=== PATIENT | male | born 1990 | race Caucasian/White ===

== ENCOUNTER 2016-10-31 18:42 | Emergency (ER) | payer SELFPAY ==
[2016-10-31 18:51] VITALS: BP 133/80; RESP 18
--- NOTE | 2016-10-31 19:01 | EDPHY ---
H & P Stated Complaint: Cut L leg with machete Time Seen by Provider: 10/31/16 18:46 HPI/ROS: CHIEF COMPLAINT: Laceration HISTORY OF PRESENT ILLNESS: Patient is a 26-year-old man who comes to the emergency department complaining of a laceration to his left valencia. He states that he was swinging machete trying to cut back branch is and he accidentally hit himself in the valencia. He placed a pressure bandage and came to the emergency department. This happened about 30 minutes ago. He has normal sensation. He is able to ambulate. Normal pulses. REVIEW OF SYSTEMS: Constitutional: denies: chills, fever, recent illness, recent injury EENTM: denies: blurred vision, double vision, nose congestion Respiratory: denies: cough, shortness of breath Cardiac: denies: chest pain, irregular heart rate, lightheadedness, palpitations Gastrointestinal/Abdominal: denies: abdominal pain, diarrhea, nausea, vomiting, blood streaked stools Genitourinary: denies: dysuria, frequency, hematuria, pain Musculoskeletal: See HPI Skin: denies: lesions, rash, jaundice, bruising Neurological: denies: headache, numbness, paresthesia, tingling, dizziness, weakness Hematologic/Lymphatic: denies: blood clots, easy bleeding, easy bruising Immunologic/allergic: denies: HIV/AIDS, transplant EXAM: GENERAL: Well-appearing, well-nourished and in no acute distress. HEAD: Atraumatic, normocephalic. EYES: Pupils equal round and reactive to light, extraocular movements intact, sclera anicteric, conjunctiva are normal. ENT: TMs normal, nares patent, oropharynx clear without exudates. Moist mucous membranes. NECK: Normal range of motion, supple without lymphadenopathy or JVD. LUNGS: Breath sounds clear to auscultation bilaterally and equal. No wheezes rales or rhonchi. HEART: Regular rate and rhythm without murmurs, rubs or gallops. ABDOMEN: Soft, nontender, normoactive bowel sounds. No guarding, no rebound. No masses appreciated. BACK: No CVA tenderness, no spinal tenderness, step-offs or deformities EXTREMITIES: Normal range of motion, no pitting or edema. No clubbing or cyanosis. NEUROLOGICAL: Cranial nerves II through XII grossly intact. Normal speech, normal gait. 5/5 strength, normal movement in all extremities, normal sensation PSYCH: Normal mood, normal affect. SKIN: Laceration to mid anterior valencia, 3 cm, deep, to the bone. No obvious fracture. No obvious bony deformity. Source: Patient Exam Limitations: No limitations - Personal History Current Tetanus/Diphtheria Vaccine: Yes - Medical/Surgical History Hx Asthma: No Hx Chronic Respiratory Disease: No Hx Diabetes: No Hx Cardiac Disease: No Hx Renal Disease: No Hx Cirrhosis: No Hx Alcoholism: No Other PMH: spondylosis - Family History Significant Family History: No pertinent family hx - Social History Smoking Status: Never smoked Alcohol Use: Sober Drug Use: None Constitutional: Initial Vital Signs Temperature (C) 36.5 C 10/31/16 18:45 Heart Rate 71 10/31/16 18:45 Respiratory Rate 18 10/31/16 18:45 Blood Pressure 133/80 H 10/31/16 18:45 O2 Sat (%) 95 10/31/16 18:45 O2 Delivery Mode Room Air Allergies/Adverse Reactions: Sulfa (Sulfonamide Antibiotics) Allergy (Unknown, Verified 10/31/16 18:49) as child Home Medications: Medication Instructions Recorded Cephalexin [Keflex] 500 mg PO TID #21 cap 10/31/16 Medical Decision Making - Diagnostics Imaging Results: Imaging Impressions Tibia/Fibula X-Ray 10/31/16 18:58 Impression: No fracture or foreign body. Procedures: Procedure: Laceration repair. Verbal consent was obtained from the patient. The 3 cm left valencia laceration was anesthetized with 0.5% bupivacaine with epinephrine locally infiltrated. The wound was irrigated copiously according to protocol, draped and explored to its base. It was approximately 1 cm deep. There were no deep structures involved. No tendon, nerve, or vascular injury was identified when explored through full range of motion. No foreign body was identified. The wound was repaired with 5.0 Vicryl, 7 sutures, interrupted. The wound repair was simple without wound margin revisement or multiple flap alignment. The procedure was performed by myself. A dressing was then placed with sterile gauze and bacitracin. ED Course/Re-evaluation: The patient does not have any obvious fracture or bone chip. I will start him on antibiotics because I am worried about some communication with the bone. Patient understands and agrees with this plan. I placed dissolve the sutures with they will need to be resumed in 10 days. Differential Diagnosis: Partial list of the Differential diagnosis considered include but were not limited to; laceration, fracture and although unlikely based on the history and physical exam, I also considered foreign body, tendon injury, nerve injury, vascular injury. I discussed these differential diagnoses and the plan with the patient as well as the usual and expected course. The patient understands that the diagnosis is provisional and that in medicine we are not always correct and that further workup is often warranted. Usual and customary warnings were given. All of the patient's questions were answered. The patient was instructed to return to the emergency department should the symptoms at all worsen or return, otherwise to followup with the physician as we discussed. Departure - Departure Disposition: Home, Routine, Self-Care Clinical Impression: Laceration Condition: Fair Instructions: Care For Your Stitches (ED), Laceration (ED) Additional Instructions: Have your stitches removed in 10 days. Referrals: Morgan Wolf MD [Medical Doctor] - As per Instructions Prescriptions: Cephalexin [Keflex] 500 mg PO TID #21 cap
[2016-10-31 19:57] VITALS: PULSE 88; TEMP 98.8; O2SAT 99
== END 2016-10-31 19:55 | disposition home or self-care (01) ==
PROC: 0HQLXZZ Repair Left Lower Leg Skin, External Approach (ICD-10-PCS; principal; 2016-10-31)
DX: S81.812A Laceration without foreign body, left lower leg, initial encounter (principal); W22.8XXA Striking against or struck by other objects, initial encounter; Y93.89 Activity, other specified

== ENCOUNTER 2016-11-01 09:52 | Emergency (ER) | payer SELFPAY ==
[2016-11-01 09:58] VITALS: BP 122/65; PULSE 72; RESP 17; TEMP 97.7; O2SAT 95
--- NOTE | 2016-11-01 10:21 | EDPHY ---
H & P Time Seen by Provider: 11/01/16 10:10 HPI/ROS: CHIEF COMPLAINT: Wound check HISTORY OF PRESENT ILLNESS: The patient is a 26-year-old male who presents to the emergency department to recheck his left valencia wound. Patient was seen in the emergency department yesterday for a machete wound. He states when he slept he felt the wound pole part. When he removed the bandage she noticed that 1 or 2 of the sutures were missing. The patient denies any other trauma. He has no significant pain. No fevers or chills. He is currently taking his antibiotics. REVIEW OF SYSTEMS: My complete review of systems is negative except as mentioned in the HPI. Past Medical/Surgical History: Noncontributory Smoking Status: Never smoked Physical Exam: Vitals noted General Appearance: Alert and no distress. Head: Pupils equal. Normal. Respiratory: No respiratory distress. Cardiac: regular rate and rhythm. Extremities: Patient has a laceration on his left valencia. This appears clean and dry. There are 2 sutures missing in the middle. However, the wound is maintaining good approximation. No visible foreign body. No surrounding erythema. No streaking up the leg. Skin: No rashes or lesions. Neuro: Alert. Normal mood and affect. Constitutional: Initial Vital Signs Temperature (C) 36.5 C 11/01/16 09:56 Heart Rate 72 11/01/16 09:56 Respiratory Rate 17 11/01/16 09:56 Blood Pressure 122/65 H 11/01/16 09:56 O2 Sat (%) 95 11/01/16 09:56 O2 Delivery Mode Room Air Allergies/Adverse Reactions: Sulfa (Sulfonamide Antibiotics) Allergy (Unknown, Verified 11/01/16 09:55) as child Home Medications: Medication Instructions Recorded Cephalexin [Keflex] 500 mg PO TID #21 cap 10/31/16 Medical Decision Making ED Course/Re-evaluation: In the emergency department I discussed the plan with the patient. I answered all his questions. The patient's wound was cleaned. Steri-Strips were placed. A new dressing was applied. I gave patient wound care instructions. He will return with worsening symptoms. He was given warnings prior to leaving. Differential Diagnosis: My differential includes but is not limited to wound check, foreign body, cellulitis, abscess, wound dehiscence Departure - Departure Disposition: Home, Routine, Self-Care Clinical Impression: Encounter for wound re-check Condition: Good Instructions: Laceration (ED) Additional Instructions: Return with increasing pain, swelling, discharge, fever or any other concerns. Keep the wound clean and dry. Referrals: Ruth Bynum MD [Medical Doctor] - 3-4 days, if not improved
== END 2016-11-01 11:00 | disposition home or self-care (01) ==
DX: Z48.01 Encounter for change or removal of surgical wound dressing (principal)
CPT/HCPCS: G0463

== ENCOUNTER 2017-02-21 18:53 | Emergency (ER) | payer OTHER ==
[2017-02-21 18:59] VITALS: RESP 16
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
[2017-02-21 20:10] VITALS: BP 114/64; PULSE 67; TEMP 98.4; O2SAT 94
== END 2017-02-21 20:09 | disposition home or self-care (01) ==
DX: S97.82XA Crushing injury of left foot, initial encounter (principal); V18.0XXA Pedal cycle driver injured in noncollision transport accident in nontraffic accident, initial encounter; Y92.410 Unspecified street and highway as the place of occurrence of the external cause; Y99.8 Other external cause status; Y93.55 Activity, bike riding
CPT/HCPCS: L4386

== ENCOUNTER 2018-06-09 17:34 | Emergency (ER) | payer MEDICAID, OTHER ==
--- NOTE | 2018-06-09 18:00 | EDPHY ---
H & P Smoking Status: Never smoked Time Seen by Provider: 06/09/18 17:50 HPI/ROS: CLINICAL IMPRESSION: Left forearm laceration, superficial ASSESSMENT/PLAN: Romario Dewitt is a 27-year-old male with a history of chronic back pain who presents for evaluation of left forearm laceration that he sustained approximately 3 hr prior to arrival. Patient is not toxic appearing, he is in no distress. Physical examination reveals 1.5 cm superficial laceration along the volar, ulnar aspect of the mid left forearm. There is no evidence of deep structure involvement, neurovascular compromise, foreign body, or bony involvement. The wound was not contaminated, tetanus status was up-to-date. The wound was irrigated and then repaired as discussed in the procedure note, the patient tolerated this well. Wound care instructions discussed with patient. He is well established with his PCP, he will call to schedule an appointment for wound check and suture removal in 7-10 days. Return precautions discussed- he will return for increased pain, signs of infection, fever, vomiting, if the wound opens or for any other concerns. Patient verbalizes understanding and he is in agreement with plan. Case discussed with and patient seen by Dr. Solomon. DIFFERENTIAL DIAGNOSIS: Includes but not limited to laceration of tendon or vascular structure, underlying fracture, laceration with retained FB ED PROCEDURES: Laceration Repair Verbal consent obtained by patient. Risks discussed, including but not limited to infection, pain, retained foreign body, need for additional repair, poor cosmetic result, tendon damage, nerve damage, poor wound healing, vascular damage. Alternatives to repair discussed. [employer] protocol used to establish correct patient, procedure, equipment, manager product support, and site. Anesthesia obtained by local infiltration. Anesthetized with lidocaine with epinephrine. Laceration location left mid forearm along the volar, ulnar aspect. length 1.5 cm, depth 3 mm, Repair type simple. Patient was prepped and draped in usual sterile fashion. Hemostasis achieved with direct pressure. Wound explored through full range of motion and entire depth of wound probed and visualized with gloved finger. No suspicion for nerve damage, tendon damage, underlying fracture, vascular damage, foreign body, or contamination. Area was cleansed with Shur-Clens and irrigated with sterile saline as per protocol. No foreign body or material removed. Repair method sutures. Three sutures placed, 5.0 Prolene simple interrupted. Well aligned, closely approximated. wound was dressed with antibiotic ointment and a nonstick dressing. Patient tolerated well with no immediate complications. Wound care: Clean and dry x 24 hours, gently clean with soap and water, cover with topical antibiotic ointment/bandage. Suture/Staple removal: 7-10 Days CHIEF COMPLAINT: Laceration HPI: Romario Dewitt is a 27-year-old male with a significant history of chronic back pain who presents for evaluation of a left forearm laceration that he sustained approximately 3 hr prior to arrival. Patient reports he was reaching up onto a shelf when he accidentally cut himself on what he believes is a piece of glass. He cleaned it, applied pressure and wrapped it with gauze and duct tape. He was able to get the bleeding under control, he denies any numbness or tingling of his extremity. He is up-to-date on his tetanus status. He is right -hand dominant. He denies any other injury or concern. PAST MEDICAL HISTORY: Chronic back pain Pertinent Past Surgical History: Noncontributory Social History: Denies smoking, occasional marijuana, occasional alcohol REVIEW OF SYSTEMS: All other systems negative Constitutional: No fever, no chills Musculoskeletal: No deformity, no joint pain Skin: Laceration, denies rash Neurological: No sensory loss or weakness, 2 point discrimination intact. PHYSICAL EXAM: General Appearance: Alert, oriented, appropriate for age, cooperative, NAD, well hydrated, non-toxic appearing, VSS, no hypoxia. Neurological: Alert and oriented x 3 Skin: 1.5 cm superficial laceration along the volar, ulnar aspect of the mid left forearm Musculoskeletal: Patient is able to supinate and pronate without difficulty, left arm. The radial, ulnar and median nerves were all tested. Radial nerve: Patient is able to extend wrist and fingers of the local joints. Ulnar nerve: Patient is able to abduct all fingers. Median nerve patient is able to oppose thumb to pinky. MEDICAL DECISION MAKING: Patient was seen with Dr. Solomon. Diagnosis: Left forearm laceration. New, requires workup Summary: See assessment and plan for summary of ED visit Clinical lab tests: NA. Independent visualization of images, tracing, or specimens: NA. Decision to obtain medical records or history from someone other than the patient no Review / Summarize previous medical records yes Discussed patient with another provider yes, Dr. Solomon (Linda Shepard) Constitutional: Initial Vital Signs Temperature (C) 36.7 C 06/09/18 17:40 Heart Rate 78 06/09/18 17:40 Respiratory Rate 16 06/09/18 17:40 Blood Pressure 103/78 06/09/18 17:40 O2 Sat (%) 97 06/09/18 17:40 O2 Delivery Mode Room Air Allergies/Adverse Reactions: Sulfa (Sulfonamide Antibiotics) Allergy (Unknown, Verified 02/21/17 18:56) as child Home Medications: Medication Instructions Recorded NK [No Known Home Meds] 02/21/17 MDM/Departure - [facility] ED Course/Re-evaluation: This patient was seen and examined by me. He presents with a small left forearm laceration. The bleeding is controlled and he is neurovascularly intact distally. I agree with the assessment and plan. (Giulia Solomon) - Depart Disposition: Home, Routine, Self-Care Clinical Impression: Laceration of forearm Qualifiers: Encounter type: initial encounter Laterality: left Qualified Code(s): S51.812A - Laceration without foreign body of left forearm, initial encounter Condition: Good Instructions: Laceration (ED) Additional Instructions: DISCHARGE INSTRUCTIONS FROM YOUR DOCTOR Thank you for visiting our emergency department today. Please keep in mind that discharge from the emergency department does not mean that there is nothing wrong - it simply means that we have not identified an emergency condition that requires further evaluation or treatment in the hospital. You should always plan to follow up with primary care for re-evaluation of your condition in the next 2-3 days. If you have been referred to a specialist, please call as soon as possible (today or tomorrow) to schedule your follow up appointment at the appropriate time. Keep wound clean and dry for 24 hours. Then remove dressing, clean at least twice daily or when soiled with soap and water, apply antibiotic ointment and dressing. Do not soak the wound while the stitches are in place. Anticipate suture removal in 7-10 days. Tylenol every 4-6 hours as directed as needed for pain. Do not exceed 4000 mg in 24 hours. Ibuprofen as directed every 6-8 hours with food as needed for pain. Stop for stomach upset. Do not exceed 2400 mg in 24 hours. Continue your regular medications as prescribed. Schedule a follow-up visit with your primary care physician or the emergency department for suture removal in 7-10 days and sooner for wound check for any concerns. Return for signs of wound infection ie: redness, swelling, drainage, foul odor, red streaks, fever, chills, pain, bleeding, if the stitches pop, if the wound opens or for any other new, worsening or worrisome symptoms. People present with illnesses and injuries in different ways, and it is always possible that we have missed something. You may always return for re-evaluation if symptoms worsen or if they are not improving or if you develop new/different symptoms. Again, thank you for choosing our emergency department. We hope that you feel better. Referrals: NONE *PRIMARY CARE P,. [Primary Care Provider] - As per Instructions
[2018-06-09 19:14] VITALS: BP 105/72
== END 2018-06-09 19:13 | disposition home or self-care (01) ==
DX: S51.812A Laceration without foreign body of left forearm, initial encounter (principal); W25.XXXA Contact with sharp glass, initial encounter; Y93.89 Activity, other specified; Y92.9 Unspecified place or not applicable; Y99.9 Unspecified external cause status